=== PATIENT | female | born 1975 | race Caucasian/White ===

== ENCOUNTER → 2018-09-22 | Outpatient (CLI) | payer BC, OTHER ==
[~2018-09-22] MED LIST: LEVO88TA3 PO
--- NOTE | 2018-09-22 15:11 | REP ---
MR BRAIN WITHOUT AND WITH CONTRAST: HISTORY: Multiple sclerosis screen. CONTRAST: ProHance 11 mL. There are no areas of abnormal signal intensity in the brain. There is no intraparenchymal hemorrhage, infarct, mass, or midline shift. There is no abnormal enhancement. The ventricular system is normal in appearance. There is no extracerebral collection. The sinuses are clear. IMPRESSION: There is no intracranial lesion. Unreviewed
--- NOTE | 2018-09-22 15:43 | REP ---
MR CERVICAL SPINE WITHOUT AND WITH CONTRAST: HISTORY: Multiple sclerosis screen. CONTRAST: ProHance 11 mL. A disc bulge is present at the C5-6 level. There is minimal effacement of the thecal sac without spinal cord compression. The C5 neural foramina are patent. There is no other disc bulge or herniation. The remaining neural foramina are patent. The spinal cord is normal in signal intensity. There is no abnormal enhancement. Normal signal intensity is present in the cervical vertebral bodies. IMPRESSION: There is cervical spondylosis at the C5-6 level without spinal cord compression. Unreviewed
== END ==
LOC: M PLARAD 10:01
PROVIDERS: ATTEND Nurse Practitioner Adult Health
DX: G35 Multiple sclerosis (principal); M47.812 Spondylosis without myelopathy or radiculopathy, cervical region